=== PATIENT | male | born 1955 | race Caucasian/White ===

== ENCOUNTER 2021-06-15 13:14 | Outpatient (RCR) | payer MEDICARE, OTHER ==
[2021-06-15 13:35] LABS: BASOPHILS # (AUTO) 0.1 10^3/uL (0.0-0.1); BASOPHILS % (AUTO) 1 % (0-10); EOSINOPHILS # (AUTO) 0.2 10^3/uL (0.0-0.3); EOSINOPHILS % (AUTO) 3 % (0-10); HEMATOCRIT 44 % (40-54); HEMOGLOBIN 14.6 g/dL (13.3-17.7); LYMPHOCYTES # (AUTO) 1.7 10^3/uL (1.0-4.0); LYMPHOCYTES % (AUTO) 26 % (12-44); MEAN CORPUSCULAR HEMOGLOBIN 29 pg (25-34); MEAN CORPUSCULAR HGB CONC 33 g/dL (32-36); MEAN CORPUSCULAR VOLUME 89 fL (80-99); MEAN PLATELET VOLUME 10.4 fL (9.0-12.2); MONOCYTES # (AUTO) 0.5 10^3/uL (0.0-1.0); MONOCYTES % (AUTO) 7 % (0-12); NEUTROPHILS # (AUTO) 4.2 10^3/uL (1.8-7.8); NEUTROPHILS % (AUTO) 63 % (42-75); PLATELET COUNT 278 10^3/uL (130-400); WHITE BLOOD COUNT 6.7 10^3/uL (4.3-11.0)
[2021-06-15 13:58] LABS: ALBUMIN 3.9 GM/DL (3.2-4.5); BILIRUBIN,TOTAL 0.5 MG/DL (0.1-1.0); CALCIUM 9.4 MG/DL (8.5-10.1); CREATININE SERUM 1.09 MG/DL (0.60-1.30); POTASSIUM 4.3 MMOL/L (3.6-5.0); TOTAL PROTEIN 6.8 GM/DL (6.4-8.2)
[2021-07-04] MEDS ORDERED: LOSA50TA63 PO (16:47)
[2021-07-04] MEDS ORDERED: AMLO-250 PO (16:47)
[2021-07-04] MEDS ORDERED: VITA-272 PO (16:48)
[2021-07-04] MEDS ORDERED: VITA400C60 PO (16:48)
[2021-09-06] MEDS ORDERED: ACHD5005 PO (18:00)
== END 2021-09-13 | disposition home or self-care (01) ==
LOC: ONC 13:14
PROVIDERS: ATTEND Internal Medicine Hematology & Oncology
DX: C18.0 Malignant neoplasm of cecum (principal); R91.1 Solitary pulmonary nodule; I10 Essential (primary) hypertension; D50.9 Iron deficiency anemia, unspecified; Z90.49 Acquired absence of other specified parts of digestive tract
CPT/HCPCS: 80053; 82378; 82728; 85025; G0463; 99214

== ENCOUNTER 2021-07-04 09:40 | Outpatient (CLI) | payer MEDICARE, OTHER ==
[~2021-07-04] VITALS: Ht 180.3 cm; Wt 109.1 kg
[2021-07-04] MEDS ORDERED: LOSA50TA63 PO (16:47)
[2021-07-04] MEDS ORDERED: AMLO-250 PO (16:47)
[2021-07-04] MEDS ORDERED: VITA400C60 PO (16:48)
[2021-07-04] MEDS ORDERED: VITA-272 PO (16:48)
== END 2021-07-05 10:19 ==
LOC: PREOP 09:40
PROVIDERS: ATTEND Surgery
DX: Z01.818 Encounter for other preprocedural examination (principal)

== ENCOUNTER 2021-07-12 09:03 | Day surgery (SDC) | payer MEDICARE, OTHER ==
[~2021-07-12] VITALS: Ht 180.3 cm; Wt 109.0 kg
[2021-07-12] VITALS (12 sets, daily range): BP systolic 112–141; BP diastolic 60–79
[~2021-07-12 09:03] MED LIST: AMLO-250 PO; LOSA50TA63 PO; VITA-272 PO; VITA400C60 PO
[2021-07-12] MEDS ORDERED: NS IV 500 ML 500 ML ONE (09:11)
[2021-07-12] MEDS ORDERED: MIDAZOLAM 5 MG/5 ML (VERSED) VIAL IV ONE (09:15)
[2021-07-12] MEDS ORDERED: LIDOCAINE JELLY 2% 6 ML SYRINGE MM PRN (09:15)
[2021-07-12] MEDS ORDERED: fentaNYL INJ 100 MCG/2 ML AMP IVP ONE (09:15)
[2021-07-12] MEDS: NS IV 500 ML 500 ML IV PRN ×2 (09:26→11:22)
--- NOTE | 2021-07-12 09:51 | Conscious Sedation/ASA ---
Conscious Sedation Pre-Proced Time 09:30 ASA Score 2 For ASA 3 and 4: Consider anesthesia and medical clearance. Also, for patients with a history of failed moderate sedation consider anesthesia. Airway Lungs Heart ASA score ASA 1: a normal healthy patient ASA 2: a patient with a mild systemic disease (mid diabetes, controlled hypertension, obesity ASA 3: a patient with a severe systemic disease that limits activity (angina, COPD, prior Myocardial infarction) ASA 4: a patient with an incapacitating disease that is a constant threat to life (CHF, renal failure) ASA 5: a moribund patient not expected to survive 24 hrs. (ruptured aneurysm) ASA 6: a declared brain- patient whose organs are being harvested. For emergent operations, add the letter E after the classification Mallampati Classification Grade 2 Sedation Plan Analgesia, Amnesia, Plan communicated to team members, Discussed options with patient/fam, Discussed risks with patient/fam The patient is an appropriate candidate to undergo the planned procedure, sedation, and anesthesia. The patient immediately re-assessed prior to indication. ALLYSON NGUYEN MD Jul 12, 2021 09:51
--- NOTE | 2021-07-12 09:52 | Progress Note-Pre Operative ---
Pre-Operative Progress Note H&P Reviewed The H&P was reviewed, patient examined and no changes noted. Date Seen by Provider: Jul 12, 2021 Time Seen by Provider: 09:30 Date H&P Reviewed: Jul 12, 2021 Time H&P Reviewed: 09:30 Pre-Operative Diagnosis: hx colon ca ALLYSON NGUYEN MD Jul 12, 2021 09:52
--- NOTE | 2021-07-12 09:53 | Discharge Inst-Surgical ---
D/C Lap Instructions-PATRICK Follow Up Activity as tolerated High Fiber Diet 25g or more per day Avoid Alcohol, Caffeine, Spicy [place] and Acid foods. Drink 64 fluid oz or more of fluids per day. Symptoms to Report: Fever over 101 degree F, Nausea/Vomiting If any problems/questions: Contact your physician or go to Emergency Room ALLYSON NGUYEN MD Jul 12, 2021 09:53
[2021-07-12] MEDS ORDERED: ONDANSETRON 4 MG (ZOFRAN) ORAL DISSOLVE TAB PO PRN (10:00)
[2021-07-12] MEDS ORDERED: ONDANSETRON 4 MG/2 ML (SDV) Z0FRAN IVP PRN (10:00)
--- NOTE | 2021-07-12 11:16 | Progress Note-Post Operative ---
Post-Operative Progess Note Surgeon (s)/Operating Room Surgical Technician (s) Surgeon ALLYSON NGUYEN MD Operating Room Surgical Technician: none Pre-Operative Diagnosis hx colon ca Post-Operative Diagnosis mild chronic stage 2 ext and int hemorrhoids, normal ileocolonic anastamosis Procedure & Operative Findings Date of Procedure 07/12/21 Procedure Performed/Findings colonoscopy Anesthesia Type cs Estimated Blood Loss Estimated blood loss (mL): minimal Specimens/Packing Specimens Removed none ALLYSON NGUYEN MD Jul 12, 2021 11:16
--- NOTE | 2021-07-12 14:47 | OPERATIVE REPORT ---
DATE OF SERVICE: 07/12/2021 ATTENDING PRIMARY CARE PHYSICIAN: Hermelinda Olivo APRN PREOPERATIVE DIAGNOSIS: Personal history of colon cancer diagnosed in 04/2020. POSTOPERATIVE DIAGNOSES: Mild chronic stage II external and internal hemorrhoids. Normal ileocolonic anastomosis. PROCEDURE: Colonoscopy. SURGEON: Allyson Nguyen MD. ANESTHESIA: Conscious sedation. ESTIMATED BLOOD LOSS: Minimal. FINDINGS: Same as postoperative diagnoses. DISPOSITION: The patient tolerated the procedure well. INDICATIONS: The patient is a 66-year-old male in need of a followup screening colonoscopy. 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 Since that time, he has moved to [place], [place], to be closer to family. He does not report any first-degree family history of colon cancer; however, does have a paternal uncle with the disease. DESCRIPTION OF PROCEDURE: The patient was brought to the endoscopy suite, laid in the left lateral decubitus position. After adequate IV pain and sedative medications and conscious sedation anesthesia, a digital rectal examination was performed. Mild chronic stage II external and internal hemorrhoids were identified, which were not actively edematous nor inflamed and no bleeding. Normal suture tone was felt and there were no palpable masses. The prostate gland was palpable and appeared normal. The endoscope was then intubated and anus and rectum gently insufflated. The endoscope was then advanced through the valves of Lambert of the rectum with no polyps or any neoplasms identified. We then proceeded through the sigmoid colon where no diverticulosis identified. The endoscope was then advanced to the remainder of the descending, transverse and ascending colon to the ascending and transverse colon to the ileocolonic anastomosis, which was widely patent and no recurrent lesions. The endoscope was then slowly withdrawn while taking a second look and suctioning of residual air with no additional findings. The patient tolerated the procedure well. With his personal history of right-sided colon cancer and this being his first colonoscopy, status post right hemicolectomy. He will need another followup colonoscopy in 1 year and then after that 3 years and then after that every 5 years. We will also recommend medical management with high fiber diet with at least 30 grams of fiber daily as well as significant amounts of water to promote soft stools on a daily basis. Job ID: [id number] DocumentID: [id number] Dictated Date: 07/12/2021 11:13:11 Apple Picker Date: 07/12/2021 14:46:45 Dictated By: ALLYSON NGUYEN MD
== END 2021-07-12 11:45 | disposition home or self-care (01) ==
LOC: ENDO 09:03
PROVIDERS: ATTEND Surgery
DX: Z12.11 Encounter for screening for malignant neoplasm of colon (principal); K64.1 Second degree hemorrhoids; K64.4 Residual hemorrhoidal skin tags; I10 Essential (primary) hypertension; E66.9 Obesity, unspecified; Z98.0 Intestinal bypass and anastomosis status; Z85.038 Personal history of other malignant neoplasm of large intestine; Z79.899 Other long term (current) drug therapy; Z68.33 Body mass index [BMI] 33.0-33.9, adult

== ENCOUNTER 2021-09-06 15:31 | Emergency (ER) | payer MEDICARE, OTHER ==
[~2021-09-06] VITALS: Ht 180 cm; Wt 104.0 kg
[2021-09-06] MEDS ORDERED: morphine INJ 10 MG/ML 1ML (SYR OR VIAL) ONE (15:59)
[2021-09-06] MEDS ORDERED: morphine INJ 4 MG/ML 1 ML (VIAL/SYRINGE) IVP ONE (16:00)
[2021-09-06] MEDS ORDERED: ONDANSETRON 4 MG/2 ML (SDV) Z0FRAN IVP ONE (16:00)
--- NOTE | 2021-09-06 16:00 | ED Fall/Injury ---
General Chief Complaint: Trauma-Non Activation Stated Complaint: SHOULDER PAIN Source: patient, family Exam Limitations: no limitations History of Present Illness Date Seen by Provider: Sep 06, 2021 Time Seen by Provider: 15:58 Initial Comments Patient is a 66-year-old male who presents ED with for left shoulder, left upper back pain. Patient fell around 3:00 this afternoon. Patient was on the roof working and fell about 10 feet.. Patient landed on his left shoulder. Denies hitting his head, loss of conscious. Has pain to the left side of his neck, upper back into his shoulder. Decreased range of motion with swelling and bruising. Patient is not on blood thinners. Pain with deep inspiration. Denies of any anterior chest pain, abdominal pain, distal numbness and tingling, headache, visual changes, paresthesia. No obvious bone deformity with a slight anterior lean of his left shoulder. Denies taking thing for pain. Patient with a steady gait here in the ED. Allergies and Home Medications Allergies Coded Allergies: amoxicillin (Unverified Allergy, Unknown, 07/12/21) clavulanic acid (Unverified Allergy, Unknown, 07/12/21) Patient Home Medication List Home Medication List Reviewed: Yes Amlodipine Besylate (Amlodipine Besylate) 5 Mg Tablet, 5 MG PO DAILY, (Reported) Entered as Reported by: GERMÁN LAST on 07/04/21 164 Hydrocodone/Acetaminophen (Hydrocodone-Acetamin 5-325 mg) 1 Each Tablet, 1 TAB PO Q4H PRN for PAIN-MODERATE (5-7) Prescribed by: BENJAMÍN WELLS on 09/06/21 1800 Losartan Potassium (Losartan Potassium) 50 Mg Tablet, 50 MG PO DAILY, (Reported) Entered as Reported by: GERMÁN LAST on 07/04/21 1647 Vitamin E Mixed (Vitamin E) 400 Unit Capsule, 400 UNIT PO DAILY, (Reported) Entered as Reported by: GERMÁN LAST on 07/04/21 1648 Review of Systems Review of Systems Constitutional: No see HPI, No chills Eyes: Denies See HPI, Denies Blindness, Denies Blurred Vision Ears, Nose, Mouth, Throat: denies see HPI, denies ear pain, denies ear discharge Respiratory: No see HPI, No cough, No dyspnea on exertion Cardiovascular: No chest pain, No edema Gastrointestinal: No no symptoms reported, No see HPI, No abdominal pain, No constipation Genitourinary: No decreased output, No discharge Musculoskeletal: back pain, joint pain, joint swelling Skin: No change in color Past Euotnuq-Jzmmev-Pgtzig Hx Seasonal Allergies Seasonal Allergies: No Past Medical History Surgeries: Yes (ROUXEN Y BYPASS, RIGHT HEMICOLECTOMY) Abdominal, Appendectomy, Bowel Surgery Respiratory: No Cardiac: No Neurological: No Genitourinary: No Gastrointestinal: No Musculoskeletal: No Endocrine: No HEENT: No Cancer: Yes Colon Psychosocial: No Integumentary: No Blood Disorders: No Physical Exam Vital Signs Vital Signs - First Documented 09/06/21 15:50 Temp 35.9 Pulse 65 Resp 18 B/P (MAP) 134/85 (101) Pulse Ox 96 Capillary Refill : Height, Weight, BMI Height: '" Weight: lbs. oz. kg; 33.53 BMI Method: General Appearance: WD/WN, no apparent distress HEENT: PERRL/EOMI, normal ENT inspection, TMs normal Neck: other (Left cervical paraspinal muscle tenderness with swelling and bruising. No cervical midline tenderness.) Cardiovascular: regular rate, rhythm, no edema, no gallop, no JVD Respiratory: lungs clear, normal breath sounds, no respiratory distress, other (Left posterior rib tenderness without crepitus or step-off.) Gastrointestinal: normal bowel sounds, non tender, no organomegaly Back: normal inspection, no CVA tenderness, no vertebral tenderness Extremities: other (Left posterior shoulder tenderness. No crepitus. Limited passive range of motion. Ross Carrier Driver strength 5-5. Neurovascular intact. No obvious bone deformity.) Neurologic/Psychiatric: medical engineer II-XII nml as tested, no motor/sensory deficits, alert, normal mood/affect, oriented x 3 Skin: other (Abrasion to right forearm.) Progress/Results/Core Measures Results/Orders Lab Results Laboratory Tests Test 09/06/21 16:00 Range/Units White Blood Count 12.0 H 4.3-11.0 10^3/uL Red Blood Count 5.08 4.30-5.52 10^6/uL Hemoglobin 14.8 13.3-17.7 g/dL Hematocrit 45 40-54 % Mean Corpuscular Volume 88 80-99 fL Mean Corpuscular Hemoglobin 29 25-34 pg Mean Corpuscular Hemoglobin Concent 33 32-36 g/dL Red Cell Distribution Width 13.2 10.0-14.5 % Platelet Count 330 130-400 10^3/uL Mean Platelet Volume 10.3 9.0-12.2 fL Immature Granulocyte % (Auto) 1 % Neutrophils (%) (Auto) 73 42-75 % Lymphocytes (%) (Auto) 18 12-44 % Monocytes (%) (Auto) 6 0-12 % Eosinophils (%) (Auto) 2 0-10 % Basophils (%) (Auto) 1 0-10 % Neutrophils # (Auto) 8.8 H 1.8-7.8 10^3/uL Lymphocytes # (Auto) 2.1 1.0-4.0 10^3/uL Monocytes # (Auto) 0.7 0.0-1.0 10^3/uL Eosinophils # (Auto) 0.2 0.0-0.3 10^3/uL Basophils # (Auto) 0.1 0.0-0.1 10^3/uL Immature Granulocyte # (Auto) 0.2 H 0.0-0.1 10^3/uL Sodium Level 141 135-145 MMOL/L Potassium Level 3.9 3.6-5.0 MMOL/L Chloride Level 105 98-107 MMOL/L Carbon Dioxide Level 24 21-32 MMOL/L Anion Gap 12 5-14 MMOL/L Blood Urea Nitrogen 13 7-18 MG/DL Creatinine 0.94 0.60-1.30 MG/DL Estimat Glomerular Filtration Rate 80 BUN/Creatinine Ratio 14 Glucose Level 167 H 70-105 MG/DL Calcium Level 9.2 8.5-10.1 MG/DL Corrected Calcium 9.1 8.5-10.1 MG/DL Total Bilirubin 0.5 0.1-1.0 MG/DL Aspartate Amino Transf (AST/SGOT) 15 5-34 U/L Alanine Aminotransferase (ALT/SGPT) 12 0-55 U/L Alkaline Phosphatase 83 40-136 U/L Total Protein 6.8 6.4-8.2 GM/DL Albumin 4.1 3.2-4.5 GM/DL My Orders Orders - JODEE KRAUSE Cbc With Automated Diff (09/06/21 15:51) Comprehensive Metabolic Panel (09/06/21 15:51) Ct Chest W (09/06/21 15:51) Ekg Tracing (09/06/21 15:51) Morphine Injection (Morphine Injection (09/06/21 16:00) Ondansetron Injection (Zofran Injectio (09/06/21 16:00) Shoulder, Left, 3 Views (09/06/21 15:56) Ct Head/Cervical Spine Wo (09/06/21 15:51) Forearm, Right, 2 Views (09/06/21 16:00) Morphine Injection (Morphine Injection (09/06/21 15:59) Iohexol Injection (Omnipaque 350 Mg/Ml 1 (09/06/21 16:15) Received Contrast (Hold Metformin- Contr (09/06/21 16:15) Ns (Ivpb) (Sodium Chloride 0.9% Ivpb Bag (09/06/21 16:15) Dipht,Pertuss(Acell),Tet Adult (Boostrix (09/06/21 16:30) Incentive Spirometry (Nursing) Q2H (09/06/21 17:37) Medications Given in ED Current Medications Medications Dose Ordered Sig/Macie Route Start Time Stop Time Status Last Admin Dose Admin Diphtheria/ Tetanus/Acell Pertussis 0.5 ml ONCE ONCE IM 09/06/21 16:30 09/06/21 16:31 DC 09/06/21 16:22 0.5 ML Morphine Sulfate 10 mg STK-MED ONCE .ROUTE 09/06/21 15:59 09/06/21 16:02 DC 09/06/21 16:03 4 MG Ondansetron HCl 4 mg ONCE ONCE IVP 09/06/21 16:00 09/06/21 16:01 DC 09/06/21 16:02 4 MG Vital Signs/I&O 09/06/21 09/06/21 15:50 17:58 Temp 35.9 Pulse 65 62 Resp 18 18 B/P (MAP) 134/85 (101) 106/74 Pulse Ox 96 96 Departure Communication (Admissions) Patient fell 10 feet landing on the left shoulder. No evidence of head trauma. Patient is not on blood thinners. Does not appear in acute distress. Vital signs stable. GCS 15. Patient was placed in cervical collar secondary to pain to the left lateral neck, left posterior shoulder. CT scan of the head and cervical neck negative for acute fracture. C-collar was removed and cleared. Patient has no focal neural deficits. Patint Was given dose of morphine and Zofran. Lab work was otherwise unremarkable. EKG normal sinus rhythm. Concerning for the left posterior upper back pain, lateral rib pain. Shortness of breath with deep inspiration. CT scan shows a tiny left pneumothorax with a nondisplaced lateral eighth rib fracture. Scapular body fracture nondisplaced. Possible manubrium fracture. He had very minimal tenderness after c-collar was removed but denies of any anterior chest wall tenderness before arrival. No abdominal tenderness, thoracic or lumbar midline tenderness. Moving all extremities without difficulties. Patient with a steady gait here in the ED. Discussed patient with Dr. Nickerson trauma surgeon who felt like as long as patient is in no acute distress with stable vital signs can be discharged outpatient follow-up with primary care physician on Saturday. Patient vital signs have been stable throughout his stay. Patient will be discharged with [place]. Recommend follow-up with PCP in 2 to 3 days for reevaluation. Will discharge with incentive spirometer. If any change in symptoms strongly recommend returning back to ED. Impression Primary Impression: Scapula fracture Additional Impressions: Rib fracture Pneumothorax Fracture of manubrium Disposition: HOME, SELF-CARE Condition: Improved Departure-Patient Inst. Decision time for Depature: 17:40 Referrals: XAVI ROMAN (PCP) Primary Care Physician JODEE MAGALLON MD (Family) Primary Care Physician RAMSES LANDIN MD Patient Instructions: Fracture, Adult ED Add. Discharge Instructions: Recommend spirometer at home. Avoid drinking a lot of fluids for the next 24 hours. Follow-up with your PCP in 2 days. Tylenol for pain. Sling for comfort. All discharge instructions reviewed with patient and/or family. Voiced understanding. Scripts Hydrocodone/Acetaminophen (Hydrocodone-Acetamin 5-325 mg) 1 Each Tablet 1 TAB PO Q4H PRN for PAIN-MODERATE (5-7) for 10 Days, #10 TAB Prov: JODEE KRAUSE 09/06/21 JODEE KRAUSE Sep 06, 2021 16:00
[2021-09-06 16:14] LABS: BASOPHILS # (AUTO) 0.1 10^3/uL (0.0-0.1); BASOPHILS % (AUTO) 1 % (0-10); EOSINOPHILS # (AUTO) 0.2 10^3/uL (0.0-0.3); EOSINOPHILS % (AUTO) 2 % (0-10); HEMATOCRIT 45 % (40-54); HEMOGLOBIN 14.8 g/dL (13.3-17.7); LYMPHOCYTES # (AUTO) 2.1 10^3/uL (1.0-4.0); LYMPHOCYTES % (AUTO) 18 % (12-44); MEAN CORPUSCULAR HEMOGLOBIN 29 pg (25-34); MEAN CORPUSCULAR HGB CONC 33 g/dL (32-36); MEAN CORPUSCULAR VOLUME 88 fL (80-99); MEAN PLATELET VOLUME 10.3 fL (9.0-12.2); MONOCYTES # (AUTO) 0.7 10^3/uL (0.0-1.0); MONOCYTES % (AUTO) 6 % (0-12); NEUTROPHILS # (AUTO) 8.8 10^3/uL (1.8-7.8); NEUTROPHILS % (AUTO) 73 % (42-75); PLATELET COUNT 330 10^3/uL (130-400)
[2021-09-06] MEDS ORDERED: NS 100 ML (IVPB) BAG IV ONE (16:15)
[2021-09-06] MEDS ORDERED: HOLD METFORMIN - RECEIVED CONTRAST 20 ML VIAL IV SCH (16:15)
[2021-09-06] MEDS ORDERED: IOHEXOL 350 MG/ML 100 ML (OMNIPAQUE 350) VIAL IV ONE (16:15)
[2021-09-06] MEDS ORDERED: TETANUS,DIPTH,PERTUSS P/F (BOOSTRIX) 0.5 ML VIAL IM ONE (16:30)
[2021-09-06 16:32] LABS: ALBUMIN 4.1 GM/DL (3.2-4.5); BILIRUBIN,TOTAL 0.5 MG/DL (0.1-1.0); CALCIUM 9.2 MG/DL (8.5-10.1); CREATININE SERUM 0.94 MG/DL (0.60-1.30); POTASSIUM 3.9 MMOL/L (3.6-5.0); TOTAL PROTEIN 6.8 GM/DL (6.4-8.2)
--- NOTE | 2021-09-06 16:54 | Diagnostic Imaging Report ---
INDICATION: Forearm pain status post fall. COMPARISON: None. FINDINGS: Two views of the right forearm were obtained and show no fractures, dislocations, or other acute bony abnormalities. Joint spaces are well maintained throughout. The soft tissues appear unremarkable. No radiopaque foreign bodies are identified. IMPRESSION: Unremarkable radiographic exam of the right forearm. Dictated by: Dictated on workstation # [id number]
--- NOTE | 2021-09-06 16:56 | Diagnostic Imaging Report ---
INDICATION: Shoulder pain. Fall from ladder. COMPARISON: None. FINDINGS: 3 radiographic views of the left shoulder were obtained. There is subtle cortical lucency involving the anterior margins of the superior scapula, only well visualized on the Y view. Otherwise, osseous structures are intact. Joint spaces are maintained. AC joint and glenohumeral joint spaces are appropriate. Included portions of the left lung are clear. No unexpected radiopaque foreign bodies are identified. IMPRESSION: 1. Subtle cortical irregularity of the anterior scapula of left shoulder. Hairline fracture cannot be excluded. 2. Otherwise, unremarkable exam. Dictated by: Dictated on workstation # [id number]
--- NOTE | 2021-09-06 17:11 | Diagnostic Imaging Report ---
EXAMINATION: CT chest with intravenous contrast. TECHNIQUE: Multiple contiguous axial images were obtained through the chest after the uneventful administration of intravenous contrast. All CT scans use one or more of the following dose optimizing techniques: Automated exposure control, MA and/or KvP adjustment based on patient size and exam type or iterative reconstruction. HISTORY: Fall, pain. COMPARISON: None available. FINDINGS: There is no edema or pneumonia. No pleural effusion. There is a tiny left pneumothorax. No suspicious nodules. There is mild bibasilar atelectasis. There is no axillary or supraclavicular lymphadenopathy. There is no mediastinal lymphadenopathy. Heart size is normal. There are mild coronary artery calcifications. No pericardial effusion. Aorta is normal in caliber. Limited views of the upper abdomen are unremarkable. There are no suspicious osseous lesions. There is a nondisplaced left lateral eighth rib fracture. There is a nondisplaced fracture of the body of the left scapula. Lucency in a vertical orientation of the manubrium is indeterminate. IMPRESSION: 1. Nondisplaced left lateral eighth rib fracture with a tiny left pneumothorax. 2. Nondisplaced scapular body fracture on the left. 3. A vertically oriented lucency in the left aspect of the manubrium is indeterminate, correlate for any focal tenderness as this could represent a fracture. Critical findings called to Dr. Mejia by Dr. Long on 09/06/2021 at 5:07 p.m. Dictated by: Dictated on workstation # [id number]
--- NOTE | 2021-09-06 17:11 | Diagnostic Imaging Report ---
Clinical indication: Patient fell approximately 10' from roof onto left shoulder. Patient has swelling and abrasions of left shoulder. Exam: Head CT without IV contrast with sagittal and coronal reformations. Axial CT scan of the cervical spine with sagittal and coronal reformations. Auto Exposure Controls were utilized during the CT exam to meet ALARA standards for radiation dose reduction. Comparison: None. Findings: Head CT: There is no evidence of acute cerebral infarct, intracranial hemorrhage or gross mass effect. The brain parenchymal volume appears appropriate for patient's age. There is normal parsons-white matter distinction. There is no significant midline shift or herniation. There is no evidence of hydrocephalus. The basal cisterns are unremarkable. The skull, extracranial soft tissue and orbits are unremarkable. The paranasal sinuses are unremarkable. Temporal bones show no significant abnormality. CT cervical spine: There is no acute cervical spine fracture or dislocation. There is no prevertebral soft tissue swelling. There are cervical spine degenerative spurs most pronounced at the C4-C5 and C5-C6 levels. There is moderate right neural foramen narrowing and severe left neural foramen narrowing at the C5-C6 levels due to uncinate spurs and diffuse disk bulge. There is at least mild to moderate central canal stenosis at the C4-C5 and C5-C6 levels due to disk herniations. There is moderate loss of disk space height at C5-C6 level. Visualized upper lung martinez are clear. Impression: 1: There is no evidence of acute intracranial process. There is no intracranial hemorrhage. There is no skull fracture. 2: There is no acute cervical spine fracture or dislocation. 3: There is significant degenerative disease at C4-C5 and C5-C6 levels with disk spurs and disk herniations. Nonemergent MRI would better evaluate. Dictated by: Dictated on workstation # [id number]
[2021-09-06 17:58] VITALS: BP 106/74
[2021-09-06] MEDS ORDERED: ACHD5005 PO (18:00)
== END 2021-09-06 17:57 | disposition home or self-care (01) ==
LOC: EDUNIT# 15:31 → ER 15:32
DX: S42.115A Nondisplaced fracture of body of scapula, left shoulder, initial encounter for closed fracture (principal); S22.32XA Fracture of one rib, left side, initial encounter for closed fracture; S22.21XA Fracture of manubrium, initial encounter for closed fracture; S50.811A Abrasion of right forearm, initial encounter; J93.9 Pneumothorax, unspecified; Z23 Encounter for immunization; W17.89XA Other fall from one level to another, initial encounter
CPT/HCPCS: 70450; 71260; 72125; 73030; 73090; 80053; 85025; 90471; 93005; 96374; 96375; 99284; A4565; 36415; 90715

== ENCOUNTER → 2021-09-13 | Outpatient (CLI) | payer MEDICARE, OTHER ==
[~2021-09-13] MED LIST changes: +ACHD5005 PO; +BARIUM SUSPENSION 2.1% (VANILLA SILQ) 450 ML PO ONE; +CATHETER FLUSH 10 ML SYR IV PRN; +HOLD METFORMIN - RECEIVED CONTRAST 20 ML VIAL IV SCH; +IOHEXOL 350 MG/ML 100 ML (OMNIPAQUE 350) VIAL IV ONE; +NS 100 ML (IVPB) BAG IV ONE
[2021-09-13 12:14] LABS: CREATININE SERUM 0.89 MG/DL (0.60-1.30)
--- NOTE | 2021-09-13 13:04 | Diagnostic Imaging Report ---
INDICATION: Adenocarcinoma of the cecum. Lung lesions in the past. Fell one week ago off a roof with pain to the left shoulder. EXAMINATION: CT of the chest, abdomen, and pelvis with and without contrast on 09/13/2021. COMPARISON: Chest from 09/06/2021. FINDINGS: There is a small left pleural effusion. This has slightly increased since the recent examination. A previously noted tiny pneumothorax is no longer visible. Again seen is a fracture of the left lateral 8th rib, stable from previous imaging. Again seen is a nondisplaced fracture of the left scapular body. No new fracture is identified. The previously described vertical lucency through the left aspect of the manubrium is stable. Within the lungs, there are multiple subpleural nodules throughout the right lung. No new masses or lesions are appreciated. There is no new mediastinal, hilar, or axillary adenopathy. Within the abdomen and pelvis, the gallbladder is markedly distended. The liver is unremarkable. The spleen is normal. The pancreas is slightly atrophied but otherwise unremarkable. The adrenal glands are normal. The kidneys are within normal limits. There is no ascites or free air. There is no inflammatory change about the loops of bowel. There is no adenopathy. Atherosclerotic disease is noted. No acute osseous abnormality. IMPRESSION: 1. Distention of the gallbladder without surrounding inflammatory change. 2. Incidental findings are otherwise noted with no evidence for a metastatic process. Dictated by: Dictated on workstation # [id number]
== END ==
LOC: RAD 11:45
PROVIDERS: ATTEND Internal Medicine Hematology & Oncology
DX: C18.0 Malignant neoplasm of cecum (principal); M25.512 Pain in left shoulder; W19.XXXA Unspecified fall, initial encounter
CPT/HCPCS: 36415; 71260; 74178; 82565; 84520

== ENCOUNTER 2021-09-19 12:39 | Outpatient (RCR) | payer MEDICARE, OTHER ==
[~2021-09-19 12:39] MED LIST changes: -BARIUM SUSPENSION 2.1% (VANILLA SILQ) 450 ML PO ONE; -CATHETER FLUSH 10 ML SYR IV PRN; -HOLD METFORMIN - RECEIVED CONTRAST 20 ML VIAL IV SCH; -IOHEXOL 350 MG/ML 100 ML (OMNIPAQUE 350) VIAL IV ONE; -NS 100 ML (IVPB) BAG IV ONE
== END 2021-11-03 | disposition home or self-care (01) ==
LOC: ONC 12:39
PROVIDERS: ATTEND Internal Medicine Hematology & Oncology
DX: C18.0 Malignant neoplasm of cecum (principal); I10 Essential (primary) hypertension; D50.9 Iron deficiency anemia, unspecified; R91.1 Solitary pulmonary nodule; Z90.49 Acquired absence of other specified parts of digestive tract
CPT/HCPCS: 82378; 82728; G0463; 99213